=== PATIENT | female | born 1950 | race Caucasian/White ===

== ENCOUNTER 2024-06-16 08:42 | Day surgery (SDC) | payer MEDICARE, BC ==
[2024-06-16] MEDS: Lidocaine 1% PF 2 ML SDV INJECT SCH (08:36)
[2024-06-16] MEDS: Tetracaine HCl/PF 0.5% 4 ML Bottle EYEBOTH SCH (08:36)
[2024-06-16] MEDS: Cefuroxime 10 MG/ML SYRINGE EYERT SCH (08:36)
[2024-06-16] MEDS: Phenylephrine 2.5% Ophth Soln 2 ML Bot EYERT SCH (08:36)
[2024-06-16] MEDS: Polymyxin B/Trimethoprim 10 ML Bottle EYERT SCH (08:37)
[2024-06-16] MEDS: Pilocarpine 4% Ophth Soln 15 ML Bot EYERT SCH (08:37)
[2024-06-16] MEDS: Brimonidine 0.2% Ophth Soln 5 ML Bottle EYERT SCH (09:45)
[2024-06-16] MEDS: Tropicamide 1% Ophth Soln 3 ML Bottle EYERT SCH (09:54)
== END 2024-06-16 11:47 | disposition home or self-care (01) ==
LOC: JD.SDS 08:42
PROVIDERS: ATTEND Ophthalmology
DX: H25.813 Combined forms of age-related cataract, bilateral (principal); I10 Essential (primary) hypertension; E78.2 Mixed hyperlipidemia; H35.3131 Nonexudative age-related macular degeneration, bilateral, early dry stage; H35.363 Drusen (degenerative) of macula, bilateral; H18.413 Arcus senilis, bilateral; H16.103 Unspecified superficial keratitis, bilateral; H16.223 Keratoconjunctivitis sicca, not specified as Sjogren's, bilateral; Z79.899 Other long term (current) drug therapy
CPT/HCPCS: 66984; A9270; J0697; J2003; J3490